=== PATIENT | male | born 1975 | race Two or more races ===

== ENCOUNTER 2023-11-07 11:55 | Inpatient (IN) ==
[2023-11-07 12:38] LABS: BILIRUBIN,URINE NEGATIVE (NEGATIVE); BLOOD/HEMOGLOBIN,URINE 1+ (NEGATIVE); GLUCOSE, URINE 3+ (NEGATIVE); KETONES,URINE 2+ (NEGATIVE); LEUKOCYTE ESTERASE ,URINE NEGATIVE (NEGATIVE); NITRITES,URINE NEGATIVE (NEGATIVE); PROTEIN,URINE 1+ (NEGATIVE); UROBILINOGEN,URINE NORMAL (NORMAL)
--- NOTE | 2023-11-07 12:41 | DR.PSYCH ---
HPI Time Seen Time Seen by Provider: 11/07/23 12:40 PCP Primary Care Physician: NFD Complaint Chief Complaint Doctors Comments: 48 y/o H male brought in for evaluation. Has been here working in the [employer] past several weeks, has been fighting feelings of depression. Worried about his family back in [facility]. Has not been sleeping well. Is feeling that people are after him, recently went running through the [employer] due to this. Having headaches, dull, diffuse. Also having some muscle pain. Has never been treated for depression. Patient is not suicidal or homicidal. Patient does not use drugs or drink alcohol to excess. Denies recent illness. Chief Complaint:: Pt states that he has some family issues back home in [facility] and because of this he has been very depressed. Denies any suicidal ideations/homicidal ideations. Pt does state that he has been very depressed and has not slept in the past week. Pt has also c/o constant dull aching headache all over. Pt states that for the past month he has been very paranoid and feels as if somebody is following him. Pt is noted to have superficial scratches to bilateral upper extremities. He states that this was not self inflicted but was a result of running through the [employer] yesterday because he was being followed by someone. COVID-19 Coronavirus risk:travel/contact w/high risk person: No Has patient experienced Coronavirus symptoms: No Reviewed Nurses Notes Review: Yes Source History Provided: Patient Mode of Arrival Mode of Arrival: Ambulatory Timing Onset of Chief Complaint: 11/07/23 Context Presents With: Depression and Other Ideation: None Plan: None History of: None Medication Compliance: No Quality Quality: None Hallucinations: None Associated signs and symptoms Intoxification: None PMH PMH Past Medical History: No Past Surgical History: No Family History History of Family Medical Conditions: Yes Family Medical History: Diabetes Mellitus Social History Does patient currently use any type of tobacco product: No Have you used tobacco products in the last 12 months: No Type of Tobacco Use: Cigarettes Does any household member use tobacco: No Alcohol Use: None Do you use any recreational Drugs:: No Lives With: Family Lives Where: Home Travel Risk Coronavirus risk:travel/contact w/high risk person: No Has patient experienced Coronavirus symptoms: No Infectious screening In the last 2 months have you had wt loss of >10#?: NO Have you had fever, night sweats or hemotysis?: No Have you traveled outside the country in the last 6 months?: No Isolation: Standard ROS Review of Systems Constitutional: Weakness Eyes: No Symptoms Reported ENTM: No Symptoms Reported Respiratoy: No Symptoms Reported Cardiovascular: No Symptoms Reported Gastrointestinal/Abdominal: No Symptoms Reported Genitourinary: No Symptoms Reported Neurological: Headache Musculoskeletal: Muscle Pain Integumentary: No Symptoms Reported Hematologic/Lymphatic: No Symptoms Reported Psychiatric: Depression All Other Systems: Reviewed and Negative PE Vitals Vitals: Vital Signs Temperature 97.9 F Pulse Rate 81 Respiratory Rate 22 Blood Pressure 107/62 O2 Sat by Pulse Oximetry 97 General General Appearance: Alert and In No Apparent Distress Head Head Exam: Normal Inspection, Atraumatic and Normocephalic Eyes Eye exam: PERRL and EOMI ENT ENT Exam: Normal Oropharynx and Mucous Membranes Moist Neck Neck Exam: Normal Inspection and Full ROM; negative Tenderness Respiratory Respiratory Exam: Normal Lung Sounds Bilat; negative Accessory Muscle Use or Respiratory Distress Cardiovascular Cardiovascular Exam: Regular Rate, Normal Rhythm and Normal Heart Sounds Abdominal Exam Abdominal Exam: Normal Bowel Sounds and Soft; negative Tenderness Extremities Extremities Exam: Normal Inspection; negative Edema Neurologic Neurological Exam: Alert, Oriented X3 and CN II-XII Intact; negative Motor Sensory Deficit Skin Skin Exam: Warm and Dry COURSE Treatment Treatment: 48-year-old male presents with feelings of depression, headaches. Physical exam is benign. Workup initiated. Patient given IV fluids . Chest x-ray some scattered bilateral opacifications, mild, appear chronic. CT of the head unremarkable for acute abnormalities. Labs most acceptable except for the total CK quite elevated greater than 6000. This is consistent with rhabdomyolysis. Patient given additional IV fluids here in the ER. Recommend admission for further hydration and treatment. Patient plan headache with saline administration. Given IV Toradol/IV lorazepam with good results. Will start patient on fluoxetine for depression. Discussed with Dr. Barrientos, covering for admission, accepts the admission. ROR Labs Reviewed Laboratory Results Reviewed?: Yes 11/07/23 13:28 11/07/23 13:28 Laboratory: WBC 10.2 X10^3/uL (3.6-10.0) H 11/07/23 13:28 RBC 4.50 X10^6/uL (4.7-6.0) L 11/07/23 13:28 Hgb 13.8 g/dL (13.5-18.0) 11/07/23 13:28 Hct 41.0 % (42.0-54.0) L 11/07/23 13:28 MCV 91.0 fL (80.0-100.0) 11/07/23 13:28 MCH 30.7 pg (27.0-34.0) 11/07/23 13:28 MCHC 33.7 g/dL (33.0-35.0) 11/07/23 13:28 RDW 13.6 % (11.6-16.5) 11/07/23 13:28 Plt Count 201 X10^3/uL (150.0-450.0) 11/07/23 13:28 MPV 9.2 fL (7.4-11.0) 11/07/23 13:28 Neut % (Auto) 70.3 % (42.0-75.0) 11/07/23 13:28 Lymph % (Auto) 18.6 % (21.0-51.0) L 11/07/23 13:28 [place] % (Auto) 8.1 % (0.0-13.0) 11/07/23 13:28 Eos % (Auto) 2.2 % (0.9-2.9) 11/07/23 13:28 Baso % (Auto) 0.8 % (0.2-1.0) 11/07/23 13:28 Neut # (Auto) 7.2 x10^3/uL (2.2-4.8) H 11/07/23 13:28 Lymph # (Auto) 1.9 X10^3/uL (1.3-2.9) 11/07/23 13:28 [place] # (Auto) 0.8 x10^3/uL (0.3-0.8) 11/07/23 13:28 Eos # (Auto) 0.2 x10^3/uL (0.0-0.2) 11/07/23 13:28 Baso # (Auto) 0.1 X10^3/uL (0.0-0.1) 11/07/23 13:28 Absolute Nucleated RBC 0.0 /100WBC 11/07/23 13:28 Sodium 139 mmol/L (136-145) 11/07/23 13:28 Corrected Sodium TNP 11/07/23 13:28 Potassium 3.7 mmol/L (3.5-5.1) 11/07/23 13:28 Chloride 104 mmol/L (98-107) 11/07/23 13:28 Carbon Dioxide 29.1 mmol/L (21-32) 11/07/23 13:28 BUN 20 mg/dL (7-18) H 11/07/23 13:28 Creatinine 1.08 mg/dL (0.70-1.30) 11/07/23 13:28 Est GFR (MDRD) Af Amer > 60 (>60) 11/07/23 13:28 Est GFR (MDRD) Non-Af > 60 (>60) 11/07/23 13:28 Glucose 100 mg/dL (65-99) H 11/07/23 13:28 Calcium 8.3 mg/dL (8.5-10.1) L 11/07/23 13:28 Corrected Calcium TNP 11/07/23 13:28 Total Bilirubin 0.90 mg/dL (0.2-1.0) 11/07/23 13:28 AST 87 Units/L (15-37) H 11/07/23 13:28 ALT 52 Units/L (12-78) 11/07/23 13:28 Alkaline Phosphatase 66 Units/L (46-116) 11/07/23 13:28 Creatine Kinase 6120 Units/L (39-308) H 11/07/23 13:28 Total Protein 7.3 g/dL (6.4-8.2) 11/07/23 13:28 Albumin 3.6 g/dL (3.4-5.0) 11/07/23 13:28 Globulin 3.7 g/dL (2.5-4.5) 11/07/23 13:28 Albumin/Globulin Ratio 1.0 Ratio (1.1-2.1) L 11/07/23 13:28 Lipase 19 Units/L (16-77) 11/07/23 13:28 Specimen Type Clean catch urine 11/07/23 12:28 Urine Color Yellow (YELLOW) 11/07/23 12:28 Urine Appearance Slightly hazy (CLEAR) 11/07/23 12:28 Urine pH 6.0 (5.0 - 8.0) 11/07/23 12:28 Ur Specific [place] 1.020 (1.000-1.030) 11/07/23 12:28 Urine Protein 1+ (NEGATIVE) 11/07/23 12:28 Urine Glucose (UA) 3+ (NEGATIVE) 11/07/23 12:28 Urine Ketones 2+ (NEGATIVE) 11/07/23 12:28 Urine Blood 1+ (NEGATIVE) 11/07/23 12:28 Urine Nitrite Negative (NEGATIVE) 11/07/23 12:28 Urine Bilirubin Negative (NEGATIVE) 11/07/23 12:28 Urine Urobilinogen Normal (NORMAL) 11/07/23 12:28 Ur Leukocyte Esterase Negative (NEGATIVE) 11/07/23 12:28 Urine RBC 0-2 /HPF (0-3) 11/07/23 12:28 Urine WBC 0-2 /HPF (0-5) 11/07/23 12:28 Ur Squamous Epith Cells Rare /HPF (NEGATIVE) 11/07/23 12:28 Amorphous Sediment 1+ /HPF (NEGATIVE) 11/07/23 12:28 Urine Bacteria Negative /HPF (NEGATIVE) 11/07/23 12:28 Ur Culture Indicated? No/not indicated 11/07/23 12:28 Urine Opiates Screen Negative (NEG=<300) 11/07/23 12:28 Urine Methadone Screen Negative (NEG=<300) 11/07/23 12:28 Ur Barbiturates Screen Negative (NEG=<200) 11/07/23 12:28 Ur Phencyclidine Scrn Negative (NEG=<25) 11/07/23 12:28 Ur Amphetamines Screen Negative (NEG=<1000) 11/07/23 12:28 U Benzodiazepines Scrn Negative (NEG=<200) 11/07/23 12:28 Urine Cocaine Screen Negative (NEG=<300) 11/07/23 12:28 U Marijuana (THC) Screen Negative (NEG=<50) 11/07/23 12:28 CK - 6,120 Opioid Opioid Risk Tool Age (Eladio box if 16-45): No History of Preadolescent Sexual Abuse: No Total: 0 Total Score Risk Category: Low Risk Copyright: Phil ARGUELLO predicting aberrant behaviors Discharge Plan Diagnosis Discharge Problem: Rhabdomyolysis, Depression Discharge Plan Patient Disposition: 09 ADMITTED INPATIENT Condition: Stable Orders to Discharge Patient Discharge Orders: Transfer (Routine); Ordered 11/07/23 Ordered By: Pedro Varela
[2023-11-07 12:54] LABS: APPEARANCE,URINE SLIGHTLY HAZY (CLEAR); BACTERIA,URINE NEGATIVE /HPF (NEGATIVE); COLOR,URINE YELLOW (YELLOW); RBC,URINE 0-2 /HPF (0-3); SQUAMOUS EPITHELIAL CELL,UR RARE /HPF (NEGATIVE)
[2023-11-07] MEDS: NS 1,000 ML IV 1,000 ML IV ONE ×2 (13:30→14:30)
[2023-11-07 13:36] LABS: BASOPHILS # (AUTO) 0.1 X10^3/uL (0.0-0.1); BASOPHILS % (AUTO) 0.8 % (0.2-1.0); EOSINOPHILS # (AUTO) 0.2 x10^3/uL (0.0-0.2); EOSINOPHILS % (AUTO) 2.2 % (0.9-2.9); HEMOGLOBIN 13.8 g/dL (13.5-18.0); LYMPHOCYTES # (AUTO) 1.9 X10^3/uL (1.3-2.9); LYMPHOCYTES % (AUTO) 18.6 % (21.0-51.0); MEAN CORPUSCULAR HEMOGLOBIN 30.7 pg (27.0-34.0); MEAN CORPUSCULAR HGB CONC 33.7 g/dL (33.0-35.0); MEAN PLATELET VOLUME 9.2 fL (7.4-11.0); MONOCYTES # (AUTO) 0.8 x10^3/uL (0.3-0.8); MONOCYTES % (AUTO) 8.1 % (0.0-13.0); NEUTROPHILS # (AUTO) 7.2 x10^3/uL (2.2-4.8); NEUTROPHILS % (AUTO) 70.3 % (42.0-75.0); PLATELET COUNT 201 X10^3/uL (150.0-450.0); RED CELL DISTRIBUTION WIDTH 13.6 % (11.6-16.5); WHITE BLOOD COUNT 10.2 X10^3/uL (3.6-10.0)
--- NOTE | 2023-11-07 13:38 | RAD ---
EXAMINATION:CHEST, 1 VIEWHISTORY:DEPRESSIONFELL; .COMPARISON STUDY:None.TECHNIQUE:Single frontal view of the chestFINDINGS:Lungs are expanded. Subtle streaky opacities in both lungs. No pneumothorax. Heart size and pulmonary vascular pattern appear normal. CP angles are sharp. Bones are intact.IMPRESSION:Subtle streaky opacities in both lungs. No focal area of pulmonary consolidation or pleural fluid collection.THIS IS AN ELECTRONICALLY VERIFIED FINAL REPORT11/07/2023 1:34 PM - Electronically signed by Kaye Douglas MD
--- NOTE | 2023-11-07 13:40 | CT ---
EXAMINATION:BRAIN W/O CONHISTORY:HEADACHEDEPRESSION;COMPARISON: .br.br.br.br.br of the brain. Images are reviewed in the axial imaging plane with reformatted sagittal and coronal images.The above CT scan was done with automated exposure control and the mA and kV was adjusted to obtain quality images according to patient size.FINDINGS:No evidence of acute intracranial hemorrhage, mass effect, or midline shift. Normal dave-white matter differentiation. Ventricles normal size and shape. Calvarium appears intact.IMPRESSION:No acute intracranial process seen.THIS IS AN ELECTRONICALLY VERIFIED FINAL REPORT11/07/2023 1:37 PM - Electronically signed by Kaye Douglas MD
[2023-11-07 13:57] LABS: ALANINE AMINOTRANSFERASE 52 Units/L (12-78); ALBUMIN 3.6 g/dL (3.4-5.0); ALKALINE PHOSPHATASE 66 Units/L (46-116); ASPARTATE AMINO TRANSFERASE 87 Units/L (15-37); BLOOD UREA NITROGEN 20 mg/dL (7-18); CALCIUM 8.3 mg/dL (8.5-10.1); CARBON DIOXIDE 29.1 mmol/L (21-32); CHLORIDE 104 mmol/L (98-107); CREATININE 1.08 mg/dL (0.70-1.30); GLUCOSE 100 mg/dL (65-99); LIPASE 19 Units/L (16-77); POTASSIUM 3.7 mmol/L (3.5-5.1); SODIUM 139 mmol/L (136-145); TOTAL PROTEIN 7.3 g/dL (6.4-8.2); eGFR NON BLACK RACES > 60 (>60)
[2023-11-07 14:00] LABS: CREATINE KINASE 6120 Units/L (39-308)
[2023-11-07] MEDS: ATIVAN INJ 2 MG VIAL IVP ONE (14:52)
[2023-11-07] MEDS: TORADOL 30 MG VIAL IVP ONE (14:53)
[2023-11-07] MEDS ORDERED: TORADOL 30 MG VIAL IVP PRN (17:01)
[2023-11-07] MEDS: PROzac PO SCH (17:42)
[2023-11-07] MEDS: CONSULT PHARMACY - POTASSIUM & MAGNESIUM XX SCH (17:42)
[2023-11-07] MEDS: LR 1,000 ML IV 1,000 ML IV SCH (17:42)
[2023-11-07 18:19] VITALS: BMI 28.0
[2023-11-07] MEDS: KLOR-CON PO SCH (21:44)
[2023-11-08 04:50] LABS: BASOPHILS % (AUTO) 0.7 % (0.2-1.0); EOSINOPHILS # (AUTO) 0.4 x10^3/uL (0.0-0.2); EOSINOPHILS % (AUTO) 7.8 % (0.9-2.9); HEMATOCRIT 40.7 % (42.0-54.0); HEMOGLOBIN 13.6 g/dL (13.5-18.0); LYMPHOCYTES # (AUTO) 1.8 X10^3/uL (1.3-2.9); LYMPHOCYTES % (AUTO) 32.7 % (21.0-51.0); MEAN CORPUSCULAR HEMOGLOBIN 30.5 pg (27.0-34.0); MEAN CORPUSCULAR HGB CONC 33.3 g/dL (33.0-35.0); MEAN CORPUSCULAR VOLUME 91.8 fL (80.0-100.0); MEAN PLATELET VOLUME 9.9 fL (7.4-11.0); MONOCYTES # (AUTO) 0.5 x10^3/uL (0.3-0.8); MONOCYTES % (AUTO) 9.6 % (0.0-13.0); NEUTROPHILS # (AUTO) 2.8 x10^3/uL (2.2-4.8); NEUTROPHILS % (AUTO) 49.2 % (42.0-75.0); PLATELET COUNT 197 X10^3/uL (150.0-450.0); RED BLOOD COUNT 4.44 X10^6/uL (4.7-6.0); RED CELL DISTRIBUTION WIDTH 13.8 % (11.6-16.5); WHITE BLOOD COUNT 5.6 X10^3/uL (3.6-10.0)
[2023-11-08 04:59] LABS: ALANINE AMINOTRANSFERASE 49 Units/L (12-78); ALBUMIN 3.2 g/dL (3.4-5.0); ALKALINE PHOSPHATASE 76 Units/L (46-116); ASPARTATE AMINO TRANSFERASE 68 Units/L (15-37); BLOOD UREA NITROGEN 8 mg/dL (7-18); CALCIUM 8.1 mg/dL (8.5-10.1); CARBON DIOXIDE 24.5 mmol/L (21-32); CHLORIDE 105 mmol/L (98-107); COR CA(FOR HYPOALB) 8.7 mg/dL (8.5-10.1); COR NA(FOR HYPERGLY) 141 mmol/L (136-145); CREATININE 0.83 mg/dL (0.70-1.30); GLUCOSE 162 mg/dL (65-99); POTASSIUM 3.2 mmol/L (3.5-5.1); SODIUM 140 mmol/L (136-145); TOTAL PROTEIN 6.8 g/dL (6.4-8.2); eGFR NON BLACK RACES > 60 (>60)
[2023-11-08] MEDS ORDERED: CONSULT PHARMACY - POTASSIUM & MAGNESIUM XX SCH ×2 (07:00→11:00)
[2023-11-08] MEDS: K-DUR TAB 20 MEQ PO SCH (08:30)
[2023-11-08 08:43] VITALS: TEMP 98.3
[2023-11-08] MEDS: MAG-OX TAB PO SCH (11:08)
[2023-11-08 11:42] VITALS: BP 121/82; PULSE 73; RESP 30; O2SAT 97
== END 2023-11-08 11:30 | disposition home or self-care (01) | DRG 558 ==
LOC: ER 11:55 → ICU 14:52
PROVIDERS: ADMIT Obstetrics & Gynecology Obstetrics; ATTEND Obstetrics & Gynecology Obstetrics
DX: F32.89 Other specified depressive episodes; M62.82 Rhabdomyolysis; R51.9 Headache, unspecified; Z63.79 Other stressful life events affecting family and household; Z65.8 Other specified problems related to psychosocial circumstances